=== PATIENT | female | born 1985 | race Hispanic/Latino ===

== ENCOUNTER 2020-01-27 18:14 | Emergency (ER) | payer OTHER ==
[2020-01-27 18:54] LABS: BASOPHILS % (AUTO) 0.9 % (0.0-5.0); EOSINOPHILS % (AUTO) 2.9 % (0.0-8.0); HEMATOCRIT 54.6 % (36-48); LYMPHOCYTES % (AUTO) 26.3 % (21.0-51.0); MEAN CORPUSCULAR HEMOGLOBIN 29.8 pg (27.0-33.0); MEAN CORPUSCULAR HGB CONC 33.2 g/dL (32.0-36.0); MEAN CORPUSCULAR VOLUME 89.8 fL (79-99); NEUTROPHILS % (AUTO) 60.7 % (40.0-77.0); PLATELET COUNT (AUTO) 278 K/uL (130-400); RED BLOOD CELL COUNT(AUTO) 6.08 MIL/uL (4.00-5.50); RED CELL DISTRIBUTION WIDTH 13.6 % (11.0-15.5); WHITE BLOOD COUNT (AUTO) 8.7 K/uL (4.8-10.8)
[2020-01-27 19:07] LABS: CREATININE 0.7 mg/dL (0.5-1.5); POTASSIUM 3.7 mmol/L (3.5-5.1)
[2020-01-27 19:17] LABS: ALBUMIN 3.2 g/dL (3.5-5.0); BILIRUBIN,TOTAL 0.5 mg/dL (0.2-1.0); TOTAL PROTEIN, SERUM 8.1 g/dL (6.0-8.3)
[2020-01-27] MEDS ORDERED: SODIUM CHLORIDE 0.9% 500ML 500 ML IV ONE (19:57)
[2020-01-27] MEDS ORDERED: IOHEXOL 350 MG/ML 100ML INFUS..BTL IV ONE (20:18)
[2020-01-27] MEDS ORDERED: LIDOCAINE 1%-EPI 1:100,000 20 ML VIAL IJ ONE (21:23)
== END 2020-01-27 22:22 | disposition home or self-care (01) ==
LOC: EDH 18:14
DX: L92.8 Other granulomatous disorders of the skin and subcutaneous tissue (principal); L02.414 Cutaneous abscess of left upper limb; R59.0 Localized enlarged lymph nodes; Z88.8 Allergy status to other drugs, medicaments and biological substances; Z72.0 Tobacco use
CPT/HCPCS: 10060; 36415; 70492; 71270; 76536; 80053; 84702; 85025; 99285; J3490; J7040; Q9967

== ENCOUNTER 2021-06-03 05:04 | Emergency (ER) | payer OTHER ==
[~2021-06-03] VITALS: Ht 162.6 cm; Wt 117.9 kg
[2021-06-03] MEDS ORDERED: DEXAMETHASONE SOD PHOSPHATE 10MG/ML 1ML VIAL ONE (05:38)
[2021-06-03] MEDS ORDERED: AMOX500C2 PO (06:40)
[2021-06-03] MEDS ORDERED: CEFTRIAXONE 1G VIAL IVP ONE (07:00)
[2021-06-03] MEDS ORDERED: LIDOCAINE HCL-MPF 1% 2ML VIAL ONE (07:10)
== END 2021-06-03 07:28 | disposition home or self-care (01) ==
LOC: EDH 05:04
DX: J02.0 Streptococcal pharyngitis (principal); Z79.52 Long term (current) use of systemic steroids
CPT/HCPCS: 87880; 96374; 96375; 99284; J0696; J1100; J3490

== ENCOUNTER 2022-01-29 20:19 | Emergency (ER) | payer OTHER ==
[~2022-01-29] VITALS: Ht 170.2 cm; Wt 117.9 kg
[~2022-01-29 20:19] MED LIST: AMOX500C2 PO
[2022-01-29] MEDS ORDERED: CEPH500B PO (21:11)
[2022-01-29 21:12] VITALS: BP 155/97
[2022-01-29] MEDS ORDERED: ACETAMINOPHEN 500 MG TABLET PO ONE (21:30)
[2022-01-29] MEDS ORDERED: CEPHALEXIN 500 MG CAPSULE PO ONE (21:30)
[2022-01-29] MEDS ORDERED: GENTAMICIN SULFATE 0.3% 5ML DROPS OU SCH (21:30)
== END 2022-01-29 21:38 | disposition home or self-care (01) ==
LOC: EDH 20:19
DX: H10.33 Unspecified acute conjunctivitis, bilateral (principal); L03.213 Periorbital cellulitis; Z79.899 Other long term (current) drug therapy